=== PATIENT | male | born 1950 | race Caucasian/White ===

== ENCOUNTER → 2018-05-12 | Outpatient (CLI) | payer OTHER ==
[~2018-05-12] MED LIST: ACET-1256 PO; BUDE180I INH; CARB25TA14 PO; DIVA250T PO; DOCU100C31 PO; ESCI1TAB10 PO; GABA800T PO; LEVO75TA PO; MELA1TAB5 PO; OXYC-57 PO; PRLSR20 PO; RSP1 PO; SIMV20TA2 PO; TAMS0.4C38 PO; VENL150C71 PO
== END | disposition home or self-care (01) ==
LOC: C.RDSM 12:15
PROVIDERS: ATTEND Physical Medicine & Rehabilitation Sports Medicine
DX: M25.562 Pain in left knee (principal)

== ENCOUNTER → 2018-05-24 | Outpatient (CLI) | payer OTHER ==
[~2018-05-24] MED LIST changes: +VENL150C2 PO; -VENL150C71 PO
== END | disposition home or self-care (01) ==
LOC: C.RDSM 15:00
PROVIDERS: ATTEND Physical Medicine & Rehabilitation Sports Medicine
DX: S82.152D Displaced fracture of left tibial tuberosity, subsequent encounter for closed fracture with routine healing (principal); X58.XXXD Exposure to other specified factors, subsequent encounter; Z88.0 Allergy status to penicillin; Z88.1 Allergy status to other antibiotic agents; Z88.2 Allergy status to sulfonamides; Z88.6 Allergy status to analgesic agent; Z88.8 Allergy status to other drugs, medicaments and biological substances